=== PATIENT | male | born 1995 | race Two or more races ===

== ENCOUNTER 2023-01-17 21:53 | Emergency (ER) | payer BC ==
[2023-01-17] MEDS ORDERED: valACYclovir 500 MG Tab PO ONE (22:01)
[2023-01-17] MEDS ORDERED: predniSONE 20 MG Tab PO STA (22:02)
== END 2023-01-17 22:28 | disposition home or self-care (01) ==
LOC: MW.ED 21:53
DX: G51.0 Bell's palsy (principal)
CPT/HCPCS: 99283; A9270